=== PATIENT | female | born 1985 | race Caucasian/White ===

== ENCOUNTER → 2016-11-29 | Outpatient (CLI) | payer BC ==
[~2016-11-29] MED LIST: ALPR0.25 PO; DROS1TAB24 PO; ESCI10TA17 PO; ESCI1TAB10 PO; HYOS1TAB PO; LEVO125T4 PO; LEVO175T PO; METO25TA56 PO; PRENTAB26 PO; VANC5CAP PO
== END | disposition home or self-care (01) ==
LOC: C.PAPS 15:19
PROVIDERS: ATTEND Obstetrics & Gynecology
DX: Z34.01 Encounter for supervision of normal first pregnancy, first trimester (principal)

== ENCOUNTER → 2016-11-29 | Outpatient (CLI) | payer BC ==
[2016-12-01 13:09] LABS: CHLAMYDIA TRACH RNA*** NOT DETECTED (NOT DETECTED); GC (NEIS GONORRHOEAE)RNA** NOT DETECTED (NOT DETECTED)
== END | disposition home or self-care (01) ==
LOC: C.LABSPEC 15:04
PROVIDERS: ATTEND Obstetrics & Gynecology
DX: Z34.01 Encounter for supervision of normal first pregnancy, first trimester (principal)

== ENCOUNTER 2017-07-15 18:39 | Inpatient (IN) | payer BC ==
[~2017-07-15] VITALS: Ht 168.9 cm; Wt 86.5 kg
[~2017-07-15 18:39] MED LIST changes: -ESCI10TA17 PO; -LEVO175T PO; -PRENTAB26 PO
[2017-07-15] MEDS ORDERED: DINOPROSTONE 10 MG INSERT PV ONE (20:15)
[2017-07-15] MEDS ORDERED: LACTATED RINGER'S 1000ML 1,000 ML IV PRN (20:15)
[2017-07-15 20:38] VITALS: Ht 168.9 cm; Wt 86.5 kg
[2017-07-15 20:53] LABS: HEMATOCRIT 33.5 % (37-47); MEAN CELL VOLUME 88.9 fL (80-100); MEAN CORPUSCULAR HGB CONC 33.7 g/dl (32-36); MEAN PLATELET VOLUME 9.5 fL (7.4-10.4); PLATELET COUNT 302 K/uL (130-400); RED BLOOD COUNT 3.77 M/uL (4.2-5.4); WHITE BLOOD COUNT 9.54 K/uL (4.8-10.8)
[2017-07-15] MEDS ORDERED: BUTORPHANOL TARTRATE 1 MG/ML VIAL IV PRN (21:00)
[2017-07-15] MEDS ORDERED: PRENTAB26 PO (21:04)
[2017-07-15] MEDS ORDERED: LEVO175T PO (21:06)
[2017-07-15] MEDS ORDERED: ESCI10TA17 PO (21:06)
[2017-07-16] MEDS ORDERED: CALCIUM CARBONATE 500 MG CHEWABLE ONE (01:55)
[2017-07-16] MEDS ORDERED: NURSING VERBAL MED ORDER ONE ×3 (02:00→19:15)
[2017-07-16] MEDS ORDERED: CALCIUM CARBONATE 500 MG CHEWABLE PO PRN (02:15)
[2017-07-16] MEDS ORDERED: LEVOTHYROXINE 175 MCG TAB PO SCH (07:30)
[2017-07-16] MEDS ORDERED: DINOPROSTONE 10 MG INSERT PV ONE (08:30)
[2017-07-16] MEDS: LEVOTHYROXINE 175 MCG TAB PO SCH (09:07)
[2017-07-16] MEDS: LACTATED RINGER'S 1000ML 1,000 ML IV SCH ×3 (14:11→21:54)
[2017-07-16] MEDS ORDERED: BUPIVACAINE 0.25% 30 ML VIAL ONE ×2 (14:22→22:57)
[2017-07-16] MEDS ORDERED: EpHEDrine SULFATE INJ 50 MG/ML AMP ONE (14:22)
[2017-07-16] MEDS ORDERED: FENTANYL CITRATE INJ 50 MCG/1 ML 2 ML VIAL ONE (14:23)
[2017-07-16] MEDS ORDERED: FENTANYL 2MCG/ML ROPIV 1.25MG/ML 100ML BAG EPI ONE (14:23)
[2017-07-16] MEDS ORDERED: NALOXONE HCL INJ 1 MG in SODIUM CHLORIDE 0.9% 1000ML 1,000 ML IV PRN (15:38)
[2017-07-16] MEDS ORDERED: LACTATED RINGER'S 1000ML 500 ML IV PRN ×2 (15:38→16:54)
[2017-07-16] MEDS ORDERED: NALBUPHINE HCL INJ 10 MG/ML AMP IV PRN (15:45)
[2017-07-16] MEDS ORDERED: DiphenhydrAMINE HCL 50 MG/ML VIAL IV PRN (15:45)
[2017-07-16] MEDS ORDERED: EpHEDrine SULFATE INJ 50 MG/ML AMP IV PRN (15:45)
[2017-07-16] MEDS ORDERED: ONDANSETRON INJ 2 MG/ML 2 ML VIAL IV PRN (15:45)
[2017-07-16] MEDS ORDERED: NALOXONE HCL INJ 0.4 MG/1 ML VIAL/CARP IV PRN (15:45)
[2017-07-16] MEDS ORDERED: OXYTOCIN 30 UNITS/500ML NSS IV PRN (17:00)
[2017-07-16] MEDS: FENTANYL 2MCG/ML ROPIV 1.25MG/ML 100ML BAG EPI PRN ×3 (18:54→23:53)
[2017-07-16] MEDS ORDERED: ACETAMINOPHEN 325 MG TAB PO PRN (19:30)
[2017-07-16] MEDS: ESCITALOPRAM OXALATE 10 MG TAB PO SCH (21:54)
[2017-07-17] MEDS: FENTANYL 2MCG/ML ROPIV 1.25MG/ML 100ML BAG EPI PRN (02:38)
[2017-07-17] MEDS ORDERED: METHYLERGONOVINE MALEATE 0.2 MG/ML AMP ONE (03:32)
[2017-07-17] MEDS ORDERED: MISOPROSTOL 200 MCG TAB PR ONE (04:00)
[2017-07-17] MEDS ORDERED: SUPERCREAM 0.870 % 15GM JAR EXT PRN (04:00)
[2017-07-17] MEDS ORDERED: DIPHTHERIA/TETANUS/PERTUSSIS 0.5 ML SYR/VIAL IM. ONE (04:00)
[2017-07-17] MEDS ORDERED: ACETAMINOPHEN/CODEINE 300/30MG TAB PO PRN (04:00)
[2017-07-17] MEDS ORDERED: OXYCODONE/ACETAMINOPHEN 5-325 TAB PO PRN (04:00)
[2017-07-17] MEDS ORDERED: LANOLIN OINT EXT PRN ×2 (04:00)
[2017-07-17] MEDS ORDERED: METHYLERGONOVINE MALEATE 0.2 MG/ML AMP IM ONE (04:00)
[2017-07-17] MEDS ORDERED: HYDROCORTISONE ACETATE 25 MG SUPP PR PRN (04:00)
[2017-07-17] MEDS ORDERED: BENZOCAINE 20% AER SPR 82.5 GM CAN EXT PRN (04:00)
[2017-07-17] MEDS ORDERED: OXYTOCIN 30 UNITS/500ML NSS IV PRN (04:00)
[2017-07-17] MEDS: ACETAMINOPHEN/CODEINE 300/30MG TAB PO PRN ×2 (04:18→21:56)
--- NOTE | 2017-07-17 04:44 | DELIVERY SUMMARY ---
DATE OF OPERATION: 07/17/2017 The patient is a 32-year-old 1, para 1. She has a history of thyroid cancer. She is on thyroid replacement, has been checked several times during her and also adjusted several times. Blood type is O positive, rubella immune. Vaginal beta Strep screen negative. Glucose screen negative. The patient was brought in for induction due to persistent proteinuria and elevated alkaline phosphatase, she was brought in at 39 weeks 1 day. Her blood pressures were normal; however, she continued to spill and she had a fairly markedly elevated alkaline phosphatase along with a rash and itching. On admission, we used Cervidil tape, 12 hours later she started to contract some, cervix really had not changed much, we removed the 1 tape, replaced it with another Cervidil tape, and then several hours after this tape was in, her cervix started to open, at first it was about 2 cm and very posterior. After about 9 hours of the second tape, she requested and received epidural anesthesia. About the time she received the epidural anesthesia, the cervix had moved anteriorly and was 4-5 cm. The cervix remained anterior and 4-5 cm for several hours, gradually thinned out and then started to dilate. By this time, she was also augmented with IV Pitocin. With the IV Pitocin augmentation, she went to full dilatation and pushed out a live female infant via direct occiput anterior position over an intact perineum. Infant was suctioned through the mouth and the nose. Shoulders were delivered without difficulty. Cord was clamped, cut by the father. Cord blood was taken with IV Pitocin running. The placenta was removed intact. She had a little bit of uterine atony and ended up with an estimated blood loss of about 600 mL. The atony was managed by using 0.2 mg IM Methergine, IV Pitocin running and rectal Cytotec 1000 mcg along with vigorous fundal massage and removal of all clots. Following this, inspection revealed a complete tear of the right labia minora. This was infiltrated with local and repaired anatomically. A deep suture of 2-0 Vicryl was used to approximate the 2 ends of labia minora. Then, the skin surface was approximated with a mattress suture of interrupted Vicryls, about 5 mattress sutures, and then on the vaginal side, a running suture of 2-0 Vicryl was used to approximate the deep tissues. Following this, hemostasis was good, good anatomical approximation had been achieved. There was also a very small superficial laceration of the perineum at about 7:00 on the vaginal opening and this was repaired with a running 2-0 Vicryl. Following this vag exam, removed all additional clots and we also performed a bimanual massage. Hemostasis was good. Five 200 mcg Cytotec were inserted into the rectum. The patient tolerated the procedure well. Hemostasis was good. I attest to the content of the Intraoperative Record and any orders documented therein. Any exception s are noted below.
--- NOTE | 2017-07-17 05:03 | Anesthesia Procedure Note ---
Anesthesia Epidural Removal Nt Date & Time Jul 17, 2017 at 05:03 Vital Signs Pain Intensity: 6.0 Notes Mental Status: alert / awake / arousable, participated in evaluation Nausea / Vomiting: adequately controlled Pain: adequately controlled Airway Patency, RR, SpO2: stable & adequate BP & HR: stable & adequate Hydration State: stable & adequate Neuraxial Anesthesia: was administered Anesthetic Complications: no major complications apparent, pt satisfied with anesthetic care Epidural: removed without complications, with tip intact
[2017-07-17] MEDS: PRENATAL VITAMIN TAB PO SCH (08:00)
[2017-07-17 08:30] VITALS: BP 108/69; PULSE 109; TEMP 37.4
[2017-07-17] MEDS: DOCUSATE SODIUM 100 MG CAP PO SCH ×2 (09:01→19:18)
[2017-07-17] MEDS: FERROUS SULFATE 325 MG TAB PO SCH (09:01)
[2017-07-17] MEDS: IBUPROFEN 600 MG TAB PO PRN ×3 (09:02→19:18)
[2017-07-17] MEDS: ACETAMINOPHEN 325 MG TAB PO PRN ×2 (10:40→16:18)
[2017-07-17 12:00] VITALS: BP 99/62; PULSE 90; TEMP 36.3
[2017-07-17] MEDS: LEVOTHYROXINE 175 MCG TAB PO SCH (12:37)
[2017-07-17 15:30] VITALS: BP 104/67; PULSE 98; TEMP 36.6
[2017-07-17 19:15] VITALS: BP 98/66; PULSE 98; TEMP 36.8
[2017-07-17] MEDS: ESCITALOPRAM OXALATE 10 MG TAB PO SCH (19:19)
[2017-07-18 03:10] VITALS: BP 94/55; PULSE 80; TEMP 36.4
[2017-07-18 04:03] LABS: HEMATOCRIT 23.9 % (37-47)
[2017-07-18 04:21] LABS: ALT/SGPT 17 U/L (12-78); AST/SGOT 24 U/L (15-37); BLOOD UREA NITROGEN 8 mg/dl (7-18); BUN/CREATININE RATIO 12.2 (10-20); CALCIUM 7.9 mg/dl (8.5-10.1); CARBON DIOXIDE 23 mmol/L (21-32); CHLORIDE 112 mmol/L (98-107); CREATININE 0.67 mg/dl (0.60-1.20); GLUCOSE 76 mg/dl (70-99); POTASSIUM 3.6 mmol/L (3.5-5.1); SODIUM 141 mmol/L (136-145)
[2017-07-18 04:24] LABS: ALB/GLOB RATIO 0.6 (0.9-2); ALKALINE PHOSPHATASE 122 U/L (45-117)
[2017-07-18 07:30] VITALS: BP 101/67; PULSE 80; TEMP 36.5
[2017-07-18] MEDS: DOCUSATE SODIUM 100 MG CAP PO SCH ×2 (07:41→19:36)
[2017-07-18] MEDS: FERROUS SULFATE 325 MG TAB PO SCH (07:41)
[2017-07-18] MEDS: PRENATAL VITAMIN TAB PO SCH ×2 (07:41→07:42)
[2017-07-18] MEDS: IBUPROFEN 600 MG TAB PO PRN ×4 (07:41→22:16)
[2017-07-18] MEDS ORDERED: LEVOTHYROXINE 125 MCG TAB PO ONE (08:00)
[2017-07-18] MEDS ORDERED: NURSING VERBAL MED ORDER ONE (08:00)
--- NOTE | 2017-07-18 09:22 | Progress Note ---
Subjective Jul 18, 2017. Subjective conversation w/ patient Ambulation: ambulating normally Voiding: no voiding problems Passing Gas: Yes Diet Tolerance: Regular Diet Lochia: Moderate Feeding Type: Breast Feeding Review of Systems Constitutional: + fever Objective Vital Signs Date Time Temp Pulse Resp B/P (MAP) Pulse Ox O2 Delivery O2 Flow Rate FiO2 07/18/17 07:30 36.5 80 20 101/67 (78) Room Air 07/18/17 03:10 36.4 80 18 94/55 (68) Room Air 07/18/17 00:16 Room Air 07/17/17 19:15 36.8 98 18 98/66 (77) Room Air 07/17/17 15:30 36.6 98 18 104/67 (79) Room Air 07/17/17 12:00 36.3 90 20 99/62 (74) Physical Exam General Appearance: WELL-APPEARING Abdomen: non tender Fundus: Firm, Non-Tender Extremities: no pedal edema, no calf tenderness Laboratory Results Last 24 Hours Test 07/18/17 03:39 Hemoglobin 7.5 g/dL Hematocrit 23.9 % Sodium Level 141 mmol/L Potassium Level 3.6 mmol/L Chloride Level 112 mmol/L Carbon Dioxide Level 23 mmol/L Anion Gap 6.0 mmol/L Blood Urea Nitrogen 8 mg/dl Creatinine 0.67 mg/dl Est Creatinine Clear Calc Drug Dose 136.1 ml/min Estimated GFR () 135.8 Estimated GFR (Non- 117.1 BUN/Creatinine Ratio 12.2 Random Glucose 76 mg/dl Calcium Level 7.9 mg/dl Total Bilirubin 0.2 mg/dl Direct Bilirubin < 0.1 mg/dl Aspartate Amino Transf (AST/SGOT) 24 U/L Alanine Aminotransferase (ALT/SGPT) 17 U/L Alkaline Phosphatase 122 U/L Total Protein 4.9 gm/dl Albumin 1.9 gm/dl Globulin 3.0 gm/dl Albumin/Globulin Ratio 0.6 Assessment and Plan Problem List Medical Problems: (1) Abdominal pain Status: Acute (2) C. difficile colitis Status: Acute (3) C. difficile diarrhea Status: Acute Post- Day#: 1
[2017-07-18 11:23] VITALS: BP 117/72; PULSE 85; TEMP 36.4; O2SAT 97
[2017-07-18 16:50] VITALS: BP 103/64; PULSE 94; TEMP 36.9; O2SAT 98
[2017-07-18] MEDS ORDERED: BISACODYL 5 MG TABEC PO SCH (20:00)
[2017-07-18] MEDS: ESCITALOPRAM OXALATE 10 MG TAB PO SCH (22:16)
[2017-07-18 23:25] VITALS: BP 114/71; PULSE 76; TEMP 36.5
[2017-07-19] MEDS: IBUPROFEN 600 MG TAB PO PRN ×2 (06:41→18:17)
[2017-07-19 06:58] LABS: HEMATOCRIT 25.4 % (37-47)
[2017-07-19] MEDS ORDERED: BISACODYL 10 MG SUPP PR PRN (07:00)
[2017-07-19 07:22] VITALS: BP 113/72; PULSE 80; TEMP 36.7; O2SAT 98
[2017-07-19] MEDS ORDERED: LEVOTHYROXINE 125 MCG TAB PO SCH (07:30)
[2017-07-19] MEDS: PRENATAL VITAMIN TAB PO SCH (08:00)
--- NOTE | 2017-07-19 08:40 | Progress Note ---
Subjective Jul 19, 2017. Subjective conversation w/ patient Ambulation: ambulating normally Voiding: no voiding problems Passing Gas: Yes Diet Tolerance: Regular Diet Lochia: Small Feeding Type: Breast Feeding Review of Systems Constitutional: + fever Objective Vital Signs Date Time Temp Pulse Resp B/P (MAP) Pulse Ox O2 Delivery O2 Flow Rate FiO2 07/19/17 07:22 36.7 80 20 113/72 (86) 98 Room Air 07/18/17 23:25 Room Air 07/18/17 23:25 36.5 76 18 114/71 (85) Room Air 07/18/17 16:50 Room Air 07/18/17 16:50 36.9 94 20 103/64 (77) 98 Room Air 07/18/17 11:23 Room Air 07/18/17 11:23 36.4 85 18 117/72 (87) 97 Room Air Physical Exam General Appearance: WELL-APPEARING Fundus: Firm, Non-Tender Extremities: no pedal edema, no calf tenderness Laboratory Results Last 24 Hours Test 07/19/17 06:49 Hemoglobin 8.1 g/dL Hematocrit 25.4 % Assessment and Plan Problem List Medical Problems: (1) Abdominal pain Status: Acute (2) C. difficile colitis Status: Acute (3) C. difficile diarrhea Status: Acute Post- Day#: 2
--- NOTE | 2017-07-19 08:42 | Discharge Instructions ---
Discharge Instructions Date of Service Jul 19, 2017. Admission Reason for Admission: Induction Discharge Discharge Diagnosis / Problem: protienuria Discharge Goals Goal(s): Routine recovery after delivery Activity Recommendations Activity Limitations: as noted below ACTIVITY RECOMMENDATIONS: * Gradual return to full activity over the next 2-3 weeks. * No lifting - nothing heavier than baby over the next 2-3 weeks. * Do not engage in vigorous exercise, sexual activity or sports until cleared by your physician. * Do not drive or operate any motorized equipment until cleared by your physician. * You may shower/bathe daily. DIET: Resume Previous Diet If Breast-feeding: * Increase caloric intake by 500 calories, eat 3 well balanced meals, 2 high protein snacks a day and drink 6-8 8oz. glasses of fluid per day. BREAST CARE: If you are not breast feeding: * Wear a supportive bra 24 hours a day for one to two weeks. * Avoid stimulating your breasts and nipples as much as possible during the first few weeks after delivery. * When taking a shower, have the warm water hit your back, not breasts. * When your breasts feel full, apply ice packs. Usually three to four times a day helps ease the discomfort. * Take a mild pain medication (Tylenol / Motrin) when you are uncomfortable. If breast feeding: * Use breast milk to lubricate nipples. Lansinoh cream may be used for sore nipples. You do not need to remove cream prior to breast feeding. If using a different brand of cream, check the label for directions regarding removal of cream prior to nursing. * Wear a supportive bra. * If having problems with breasts or breast feeding, call a field service consultant or your health care provider. OVER THE COUNTER MEDICATION: * For discomfort or pain, you may use Acetaminophen (Tylenol), Ibuprofen (Advil ), or Naproxen (Aleve) following the package directions. * For constipation you may use Colace following the package directions. SPECIAL CARE INSTRUCTIONS: * Vaginal rest (no tampons, douching, intercourse) until after doctor 's visit. * control as discussed with doctor. * Verbalizes understanding of car seat law as reviewed with patient nursing. * Car Seat hand-out given and reviewed with patient by nursing. * Shaken baby information reviewed with patient by nursing. Call you doctor if: * Temperature greater than or equal to 100.4 degrees F or 38.0 degrees C. Take your temperature twice daily for a week. * Bleeding becomes heavier than the heaviest part of your period - saturating a sanitary pad within an hour. * Passing large clots. * Bleeding has a foul smelling odor. * Signs and symptoms of phlebitis: leg pain, warm, red or swollen area on leg. * "Baby Blues" lasting longer than two weeks. ++ If you have had a and incision has increased pain, redness, swelling, presence of any drainage, or if the incision starts to open up. If you have any questions or concerns, call your health care practitioner at [phone]. FOLLOW-UP VISIT: Please call the office at to schedule a 6 week examination. . Instructions / Follow-Up Instructions / Follow-Up ACTIVITY RECOMMENDATIONS: * Gradual return to full activity over the next 2-3 weeks. * No lifting - nothing heavier than baby over the next 2-3 weeks. * Do not engage in vigorous exercise, sexual activity or sports until cleared by your physician. * Do not drive or operate any motorized equipment until cleared by your physician. * You may shower/bathe daily. DIET: Resume Previous Diet If Breast-feeding: * Increase caloric intake by 500 calories, eat 3 well balanced meals, 2 high protein snacks a day and drink 6-8 8oz. glasses of fluid per day. BREAST CARE: If you are not breast feeding: * Wear a supportive bra 24 hours a day for one to two weeks. * Avoid stimulating your breasts and nipples as much as possible during the first few weeks after delivery. * When taking a shower, have the warm water hit your back, not breasts. * When your breasts feel full, apply ice packs. Usually three to four times a day helps ease the discomfort. * Take a mild pain medication (Tylenol / Motrin) when you are uncomfortable. If breast feeding: * Use breast milk to lubricate nipples. Lansinoh cream may be used for sore nipples. You do not need to remove cream prior to breast feeding. If using a different brand of cream, check the label for directions regarding removal of cream prior to nursing. * Wear a supportive bra. * If having problems with breasts or breast feeding, call a field service consultant or your health care provider. OVER THE COUNTER MEDICATION: * For discomfort or pain, you may use Acetaminophen (Tylenol), Ibuprofen (Advil ), or Naproxen (Aleve) following the package directions. * For constipation you may use Colace following the package directions. SPECIAL CARE INSTRUCTIONS: * Vaginal rest (no tampons, douching, intercourse) until after doctor 's visit. * control as discussed with doctor. * Verbalizes understanding of car seat law as reviewed with patient nursing. * Car Seat hand-out given and reviewed with patient by nursing. * Shaken baby information reviewed with patient by nursing. Call you doctor if: * Temperature greater than or equal to 100.4 degrees F or 38.0 degrees C. Take your temperature twice daily for a week. * Bleeding becomes heavier than the heaviest part of your period - saturating a sanitary pad within an hour. * Passing large clots. * Bleeding has a foul smelling odor. * Signs and symptoms of phlebitis: leg pain, warm, red or swollen area on leg. * "Baby Blues" lasting longer than two weeks. ++ If you have had a and incision has increased pain, redness, swelling, presence of any drainage, or if the incision starts to open up. If you have any questions or concerns, call your health care practitioner at [phone]. FOLLOW-UP VISIT: Please call the office at to schedule a 6 week examination. Current Hospital Diet Patient's current hospital diet: Regular Diet Discharge Diet Recommended Diet: Regular Diet Pending Studies Studies pending at discharge: no Medical Emergencies . Who to Call and When: Medical Emergencies: If at any time you feel your situation is an emergency, please call 911 immediately. . Non-Emergent Contact Non-Emergency issues call your: Sales Audit Clerk Call Non-Emergent contact if: temperature is above 100.5 . . "Provider Documentation" section prepared by Amish Hanley. . VTE Core Measure Inpt VTE Proph given/why not?: Treatment not indicated
[2017-07-19] MEDS: FERROUS SULFATE 325 MG TAB PO SCH (08:46)
[2017-07-19] MEDS: DOCUSATE SODIUM 100 MG CAP PO SCH (08:46)
[2017-07-19 16:15] VITALS: BP 115/76; PULSE 91; TEMP 36.4; O2SAT 99
[2017-07-19 18:30] VITALS: BP_DIAS 76; PULSE 91; TEMP 36.4
== END 2017-07-19 18:30 | disposition home or self-care (01) | DRG 774 ==
LOC: C.LD 19:33 → C.OBG 07-17 06:38
PROVIDERS: ADMIT Obstetrics & Gynecology; ATTEND Obstetrics & Gynecology
PROC: 3E0P7GC Introduction of Other Therapeutic Substance into Female Reproductive, Via Natural or Artificial Opening (ICD-10-PCS; 2017-07-15)
PROC: 10E0XZZ Delivery of Products of Conception, External Approach (ICD-10-PCS; principal; 2017-07-17)
PROC: 0HQ9XZZ Repair Perineum Skin, External Approach (ICD-10-PCS; principal; 2017-07-17)
DX: O12.14 Gestational proteinuria, complicating childbirth (principal); O98.82 Other maternal infectious and parasitic diseases complicating childbirth; O62.2 Other uterine inertia; A04.7 Enterocolitis due to Clostridium difficile; O70.0 First degree perineal laceration during delivery; Z37.0 Single live birth; Z3A.39 39 weeks gestation of pregnancy; Z85.850 Personal history of malignant neoplasm of thyroid

== ENCOUNTER 2018-06-14 23:16 | Inpatient (IN) | payer BC, OTHER ==
[~2018-06-14] VITALS: Ht 170.2 cm; Wt 69.3 kg
[~2018-06-14 23:16] MED LIST changes: -ALPR0.25 PO; -DROS1TAB24 PO; +ESCI10TA17 PO; -ESCI1TAB10 PO; -HYOS1TAB PO; -LEVO125T4 PO; +LEVO175T PO; -METO25TA56 PO; +PRENTAB26 PO; -VANC5CAP PO
[2018-06-14] MEDS ORDERED: LORAZEPAM 2 MG/ML 1 ML VIAL IV STA (23:29)
[2018-06-14] MEDS ORDERED: SODIUM CHLORIDE 0.9% 1000ML 1,000 ML IV ONE ×2 (23:30)
[2018-06-15] MEDS ORDERED: LEVO137T3 PO (00:18)
[2018-06-15 00:29] LABS: BASO % 0.1 %; BASO ABS # 0.01 K/uL (0-0.2); EOS % 0.3 %; EOS ABS # 0.02 K/uL (0-0.5); HEMATOCRIT 37.7 % (37-47); HEMOGLOBIN 12.7 g/dL (12.0-16.0); IG# 0.01 K/uL (0.00-0.02); LYMPH % 8.9 %; LYMPH ABS # 0.64 K/uL (1.2-3.4); MEAN CELL VOLUME 90.2 fL (80-100); MEAN CORPUSCULAR HEMOGLOBIN 30.4 pg (25-34); MEAN CORPUSCULAR HGB CONC 33.7 g/dl (32-36); MEAN PLATELET VOLUME 9.4 fL (7.4-10.4); MONO % 6.6 %; MONO ABS # 0.48 K/uL (0.11-0.59); NEUT ABS # 6.06 K/uL (1.4-6.5); PLATELET COUNT 280 K/uL (130-400); RED CELL DISTRIBUTION WIDTH CV 12.3 % (11.5-14.5); RED CELL DISTRIBUTION WIDTH SD 40.1 fL (36.4-46.3); WHITE BLOOD COUNT 7.22 K/uL (4.8-10.8)
[2018-06-15 00:47] LABS: ALBUMIN 3.3 gm/dl (3.4-5.0); CALCIUM 7.3 mg/dl (8.5-10.1); CREATININE 0.79 mg/dl (0.60-1.20); POTASSIUM 3.6 mmol/L (3.5-5.1); TOTAL PROTEIN 6.7 gm/dl (6.4-8.2)
[2018-06-15] MEDS ORDERED: CALCIUM GLUCONATE 10% 10 ML VIAL IV STA (01:49)
[2018-06-15] MEDS ORDERED: MAGNESIUM SULFATE 1GM / D5W 100 ML IV STA (02:08)
[2018-06-15 04:23] LABS: CALCIUM 7.4 mg/dl (8.5-10.1); CREATININE 0.7 mg/dl (0.60-1.20); POTASSIUM 3.4 mmol/L (3.5-5.1)
[2018-06-15] MEDS ORDERED: ACETAMINOPHEN 325 MG TAB PO PRN (04:45)
[2018-06-15] MEDS ORDERED: ALUMINUM/MAGNESIUM/SIMETH (MAALOX MAX) 30 ML UDC PO PRN (04:45)
[2018-06-15] MEDS ORDERED: MAGNESIUM HYDROXIDE SUSP 30 ML UDC PO PRN (04:45)
--- NOTE | 2018-06-15 05:05 | History and Physical ---
History & Physical Date & Time of Service: Jun 15, 2018 at 05:04 Chief Complaint: Nausea, Vomiting Primary Care Physician: Elsie Mcdowell C.RKlaudiaNKlaudiaPKlaudia History of Present Illness Source: patient, hospital records, other 33 y/o F Hx thyroid CA, neck dissection x 3 and resultant hypothyroidism. She developed nausea, vomiting and diarrhea one day prior, possibly with a low grade fever. She then developed pain in her joints and muscles, most prominently in her hips. This was followed by development of carpopedal spasm which prompted her to visit the ER. Initial labs revealed a calcium of 7.4. She was provided with IV calcium and IV fluids. Her carpopedal spasm resolved and her muscle aches improved. However, repeat labs were obtained and revealed persistent hypocalcemia. Her nausea and vomiting had resolved at the time of admission. The pt recently gave and is presently breast feeding. Past Medical/Surgical History 1) Thyroid CA 2) Hypothyroidism 3) Depression 4) C difficile Surgical: Thyroidectomy followed by radioiodine and 2 additional neck dissections Family History Mother with history of MS Social History Does not currently smoke or drink - she is presently breast feeding Smoking Status: Former Smoker Drug Use: none Marital Status: Occupational Status: employed Allergies Coded Allergies: Sertraline (Verified Allergy, Unknown, ., 06/15/18) Home Medications Scheduled Escitalopram (Lexapro), 10 MG PO DAILY Levothyroxine Sodium (Levothyroxine Sodium), 137 MCG PO DAILY Multivit/Min/Iron/Fol Ac/Pren ( Vitamin), 1 TAB PO DAILY Review of Systems Constitutional: + fever, No chills, No sweats Eyes: No worsening of vision ENT: No hearing loss, No unusual epistaxis, No nasal symptoms Respiratory: No cough, No wheezing Cardiovascular: No chest pain, No orthopnea, No PND Abdomen: + nausea, + vomiting, + diarrhea, No pain Musculoskeletal: + joint pain, + muscle pain, + problem reported (Carpal spasm) Genitourinary - Female: No dysuria, No urinary frequency Neurologic: No memory loss, No paralysis, No weakness Psychiatric: No depression symptoms Endocrine: No fatigue Hematologic / Lymphatic: No abnormal bleeding/bruising Integumentary: No rash Allergic / Immunologic: No environmental allergies Physical Exam Vital Signs Date Time Temp Pulse Resp B/P (MAP) Pulse Ox O2 Delivery O2 Flow Rate FiO2 8/3/18 04:00 92 18 119/72 95 Room Air 06/15/18 03:15 91 06/15/18 02:16 110 18 122/73 96 Room Air 06/15/18 01:45 109 16 111/76 96 Room Air 06/15/18 00:27 121 18 114/88 98 Room Air 06/14/18 23:45 94 Room Air 06/14/18 23:25 117 06/14/18 23:23 36.9 121 18 116/81 97 Room Air General Appearance: WD/WN, no apparent distress Head: normocephalic Eyes: normal inspection ENT: normal ENT inspection, pharynx normal Neck: supple, no JVD Respiratory/Chest: chest non-tender, lungs clear, normal breath sounds Cardiovascular: regular rate, rhythm, no edema, no gallop Abdomen/GI: normal bowel sounds, non tender, soft Back: normal inspection, no CVA tenderness, no muscle spasm (No spasm at the time of admission) Extremities/Musculoskelatal: normal inspection, no calf tenderness, normal capillary refill Neurologic/Psych: dry roller II-XII nml as tested, no motor/sensory deficits, alert, oriented x 3 Skin: normal color, warm/dry, no rash Diagnostics Laboratory Results Results Past 24 Hours Test 06/14/18 23:55 06/15/18 01:00 06/15/18 03:47 06/15/18 05:00 Range/Units White Blood Count 7.22 4.8-10.8 K/uL Red Blood Count 4.18 4.2-5.4 M/uL Hemoglobin 12.7 12.0-16.0 g/dL Hematocrit 37.7 37-47 % Mean Corpuscular Volume 90.2 80-100 fL Mean Corpuscular Hemoglobin 30.4 25-34 pg Mean Corpuscular Hemoglobin Concent 33.7 32-36 g/dl Platelet Count 280 130-400 K/uL Mean Platelet Volume 9.4 7.4-10.4 fL Neutrophils (%) (Auto) 84.0 % Lymphocytes (%) (Auto) 8.9 % Monocytes (%) (Auto) 6.6 % Eosinophils (%) (Auto) 0.3 % Basophils (%) (Auto) 0.1 % Neutrophils # (Auto) 6.06 1.4-6.5 K/uL Lymphocytes # (Auto) 0.64 1.2-3.4 K/uL Monocytes # (Auto) 0.48 0.11-0.59 K/uL Eosinophils # (Auto) 0.02 0-0.5 K/uL Basophils # (Auto) 0.01 0-0.2 K/uL RDW Standard Deviation 40.1 36.4-46.3 fL RDW Coefficient of Variation 12.3 11.5-14.5 % Immature Granulocyte % (Auto) 0.1 % Immature Granulocyte # (Auto) 0.01 0.00-0.02 K/uL Sodium Level 141 140 136-145 mmol/L Potassium Level 3.6 3.4 3.5-5.1 mmol/L Chloride Level 114 113 98-107 mmol/L Carbon Dioxide Level 18 21 21-32 mmol/L Anion Gap 9.0 6.0 3-11 mmol/L Blood Urea Nitrogen 16 13 7-18 mg/dl Creatinine 0.79 0.70 0.60-1.20 mg/dl Est Creatinine Clear Calc Drug Dose 99.4 112.2 ml/min Estimated GFR () 114.8 132.9 Estimated GFR (Non- 99.1 114.6 BUN/Creatinine Ratio 19.7 18.1 10-20 Random Glucose 112 89 70-99 mg/dl Calcium Level 7.3 7.4 8.5-10.1 mg/dl Magnesium Level 1.6 1.9 1.8-2.4 mg/dl Total Bilirubin 0.7 0.2-1 mg/dl Aspartate Amino Transf (AST/SGOT) 12 15-37 U/L Alanine Aminotransferase (ALT/SGPT) 16 12-78 U/L Alkaline Phosphatase 107 45-117 U/L Total Creatine Kinase 82 26-192 U/L Total Protein 6.7 6.4-8.2 gm/dl Albumin 3.3 3.4-5.0 gm/dl Globulin 3.4 2.5-4.0 gm/dl Albumin/Globulin Ratio 1.0 0.9-2 Lipase 79 73-393 U/L Thyroid Stimulating Hormone (TSH) 0.127 0.300-4.500 uIu/ml Free Thyroxine 1.40 0.80-1.60 ng/dl Free Triiodothyronine 3.06 2.30-4.20 pg/ml Urine Color YELLOW Urine Appearance CLEAR CLEAR Urine pH 5.0 4.5-7.5 Urine Specific [place] 1.024 1.000-1.030 Urine Protein NEG NEG Urine Glucose (UA) NEG NEG Urine Ketones 3+ NEG Urine Occult Blood TRACE NEG Urine Nitrite NEG NEG Urine Bilirubin NEG NEG Urine Urobilinogen NEG NEG Urine Leukocyte Esterase TRACE NEG Urine WBC (Auto) 1-5 0-5 /hpf Urine RBC (Auto) 0-4 0-4 /hpf Urine Hyaline Casts (Auto) 0 0-5 /lpf Urine Epithelial Cells (Auto) >30 0-5 /lpf Urine Bacteria (Auto) NEG NEG Urine Test NEG NEG EKG NSR with normal QT interval Impression Assessment and Plan 33 y/o F Hx thyroid CA, neck dissection x 3 and resultant hypothyroidism. She developed nausea, vomiting and diarrhea one day prior, possibly with a low grade fever. She then developed pain in her joints and muscles, most prominently in her hips. This was followed by development of carpopedal spasm which prompted her to visit the ER. Initial labs revealed a calcium of 7.4. She was provided with IV calcium and IV fluids. Her carpopedal spasm resolved and her muscle aches improved. However, repeat labs were obtained and revealed persistent hypocalcemia. Her nausea and vomiting had resolved at the time of admission. The pt recently gave and is presently breast feeding. 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 We will need to check a phos, vitamin D and PTH - all are pending on admission. We will provide additional calcium. Her Mg was slightly low on admission, although a repeat showed a normal level. We will start her on calcium/vitamin D BID in addition to PO Mg. She will likely need a much higher dose of vitamin D after lab results become available. 2) Hypothyroidism. TSH is slightly low - T4 is WNL - she can follow with her MD upon DC for dose adjustments. 3) Nausea/vomiting/diarrhea - likely self-limiting and has improved - antiemetics and IVF provided. She apparently has a history of C diff so that a toxin study was ordered by the ER. Full code - SCDs Total time for this admit including review of labs, meds, imaging, records - discussion with pt and ER attending 37 min Resuscitation Status VTE Prophylaxis Will order VTE Prophylaxis: Yes Reason no Mechanical VTE Order: Treatment not indicated
[2018-06-15] MEDS ORDERED: CALCIUM GLUCONATE 10% 10 ML VIAL IV ONE (05:06)
[2018-06-15] MEDS ORDERED: IV FLUIDS COMPLETED PRN (05:15)
--- NOTE | 2018-06-15 06:00 | EMERGENCY ROOM VISIT NOTE ---
History First contact with patient: 23:19 Chief Complaint: VOMITING Stated Complaint: NAUSEA, VOMITING Nursing Triage Summary: Patient with n/v/d since 1200. Tonight with bilateral hand numbness and hand cramping. patient feels like from the waste down she feels like her legs cramping. Feet are pointed unable to straighten feet, when nurse attempts to lift feet very painful. 700 nss bolus and 4 mg zofran given enroute. History of Present Illness The patient is a 33 year old female who presents to the Emergency Room with complaints of nausea, vomiting, and diarrhea that began about 11 hours prior to arrival. The patient states that she started with diarrhea around 12 noon and had a few episodes of this throughout the next several hours. She does have a past history of C. difficile but has not been on recent antibiotics. This does not feel like her previous C. difficile infection. The patient states that around 6 PM, roughly 5 hours ago, she began having multiple episodes of vomiting. The patient had difficulty getting out of the bathroom following the vomiting. EMS was contacted, and they witnessed carpopedal spasms, where the patient was essentially unable to ambulatory. The patient was contracted inward with her arms. They were able to establish an IV and she has had about 700 to 800 mL's normal saline prior to arrival. This has significantly improved the spasm in her upper extremities, but on her lower extremities. She did get Zofran prehospital and has not vomited since. The patient considers himself usually healthy. She recently gave to a healthy child and is breast-feeding. The patient does have a past history of thyroid cancer with resection. She rates her current discomfort in 06/22. Review of Systems More than 10 systems were reviewed and otherwise negative with the exception of history of present illness. Past Medical/Surgical History Medical Problems: (1) Asymptomatic proteinuria (2) Cramps, extremity (3) Elevated liver enzymes (4) Hypocalcemia (5) Thyroid cancer Surgical Problems: (1) H/O thyroidectomy Family History No pertinent family history Social History Smoking Status: Former Smoker Alcohol Use: none Drug Use: none Marital Status: Housing Status: lives with family Occupation Status: employed Current/Historical Medications Scheduled Escitalopram (Lexapro), 10 MG PO DAILY Levothyroxine Sodium (Levothyroxine Sodium), 137 MCG PO DAILY Multivit/Min/Iron/Fol Ac/Pren ( Vitamin), 1 TAB PO DAILY Physical Exam Vital Signs Date Time Temp Pulse Resp B/P (MAP) Pulse Ox O2 Delivery O2 Flow Rate FiO2 06/15/18 05:44 84 18 118/71 98 Room Air 06/15/18 04:00 92 18 119/72 95 Room Air 06/15/18 03:15 91 06/15/18 02:16 110 18 122/73 96 Room Air 06/15/18 01:45 109 16 111/76 96 Room Air 06/15/18 00:27 121 18 114/88 98 Room Air 06/14/18 23:45 94 Room Air 06/14/18 23:25 117 06/14/18 23:23 36.9 121 18 116/81 97 Room Air Physical Exam VITALS: Vitals are noted on the nurse's note and reviewed by myself. Vital signs noted GENERAL: Ill and very uncomfortable appearing female. She is mildly pale and diaphoretic. She has obvious spasm of her lower legs. HEAD: Normocephalic atraumatic. MOUTH: Mucous membranes dry. Tonsils are not enlarged. Pharynx without erythema, blood, or exudate. Uvula midline. Airway patent. NECK: Supple without nuchal rigidity. No lymphadenopathy. No thyromegaly. Cervical spine is nontender. HEART: Regular rate and rhythm without murmurs gallops or rubs. LUNGS: Clear to auscultation bilaterally without wheezes, rales or rhonchi. No retractions or accessory muscle use. ABDOMEN: Positive normal bowel sounds x 4. Soft, nontender, without masses or organomegaly. No guarding or rebound tenderness. MUSCULOSKELETAL: No muscle atrophy, erythema, or edema noted. Significant spasm noted of the lower extremities. Patient is unable to actively flex or extend at her ankles or knees. I am unable to passively manipulate her toes, foot, ankle, or knee without causing significant discomfort to the patient secondary to the spasms. Sensation appears intact. Pedal pulses are good. Cap refill less than 2 seconds. NEURO: Patient was alert and oriented to person place and time. CN II through XII grossly intact. Medical Decision & Procedures Laboratory Results 06/14/18 23:55 Red Blood Count 4.18, Mean Corpuscular Volume 90.2, Mean Corpuscular Hemoglobin 30.4, Mean Corpuscular Hemoglobin Concent 33.7, Mean Platelet Volume 9.4, Neutrophils (%) (Auto) 84.0, Lymphocytes (%) (Auto) 8.9, Monocytes (%) (Auto) 6.6, Eosinophils (%) (Auto) 0.3, Basophils (%) (Auto) 0.1, Neutrophils # (Auto) 6.06, Lymphocytes # (Auto) 0.64, Monocytes # (Auto) 0.48, Eosinophils # (Auto) 0.02, Basophils # (Auto) 0.01 06/15/18 03:47 Test 06/14/18 23:55 06/15/18 01:00 06/15/18 03:47 06/15/18 05:00 White Blood Count 7.22 K/uL (4.8-10.8) Red Blood Count 4.18 M/uL (4.2-5.4) Hemoglobin 12.7 g/dL (12.0-16.0) Hematocrit 37.7 % (37-47) Mean Corpuscular Volume 90.2 fL (80-100) Mean Corpuscular Hemoglobin 30.4 pg (25-34) Mean Corpuscular Hemoglobin Concent 33.7 g/dl (32-36) Platelet Count 280 K/uL (130-400) Mean Platelet Volume 9.4 fL (7.4-10.4) Neutrophils (%) (Auto) 84.0 % Lymphocytes (%) (Auto) 8.9 % Monocytes (%) (Auto) 6.6 % Eosinophils (%) (Auto) 0.3 % Basophils (%) (Auto) 0.1 % Neutrophils # (Auto) 6.06 K/uL (1.4-6.5) Lymphocytes # (Auto) 0.64 K/uL (1.2-3.4) Monocytes # (Auto) 0.48 K/uL (0.11-0.59) Eosinophils # (Auto) 0.02 K/uL (0-0.5) Basophils # (Auto) 0.01 K/uL (0-0.2) RDW Standard Deviation 40.1 fL (36.4-46.3) RDW Coefficient of Variation 12.3 % (11.5-14.5) Immature Granulocyte % (Auto) 0.1 % Immature Granulocyte # (Auto) 0.01 K/uL (0.00-0.02) Total Bilirubin 0.7 mg/dl (0.2-1) Aspartate Amino Transf (AST/SGOT) 12 U/L (15-37) Alanine Aminotransferase (ALT/SGPT) 16 U/L (12-78) Alkaline Phosphatase 107 U/L (45-117) Total Creatine Kinase 82 U/L (26-192) Total Protein 6.7 gm/dl (6.4-8.2) Albumin 3.3 gm/dl (3.4-5.0) Globulin 3.4 gm/dl (2.5-4.0) Albumin/Globulin Ratio 1.0 (0.9-2) Lipase 79 U/L (73-393) Thyroid Stimulating Hormone (TSH) 0.127 uIu/ml (0.300-4.500) Free Thyroxine 1.40 ng/dl (0.80-1.60) Free Triiodothyronine 3.06 pg/ml (2.30-4.20) Urine Color YELLOW Urine Appearance CLEAR (CLEAR) Urine pH 5.0 (4.5-7.5) Urine Specific [place]yer 1.024 (1.000-1.030) Urine Protein NEG (NEG) Urine Glucose (UA) NEG (NEG) Urine Ketones 3+ (NEG) Urine Occult Blood TRACE (NEG) Urine Nitrite NEG (NEG) Urine Bilirubin NEG (NEG) Urine Urobilinogen NEG (NEG) Urine Leukocyte Esterase TRACE (NEG) Urine WBC (Auto) 1-5 /hpf (0-5) Urine RBC (Auto) 0-4 /hpf (0-4) Urine Hyaline Casts (Auto) 0 /lpf (0-5) Urine Epithelial Cells (Auto) >30 /lpf (0-5) Urine Bacteria (Auto) NEG (NEG) Urine Test NEG (NEG) Anion Gap 6.0 mmol/L (3-11) Est Creatinine Clear Calc Drug Dose 112.2 ml/min Estimated GFR () 132.9 Estimated GFR (Non- 114.6 BUN/Creatinine Ratio 18.1 (10-20) Calcium Level 7.4 mg/dl (8.5-10.1) Magnesium Level 1.9 mg/dl (1.8-2.4) Medications Administered Medications (Trade) Dose Ordered Sig/Za Route Start Time Stop Time Status Last Admin Dose Admin Lorazepam (Ativan Inj) 2 mg NOW STAT IV 06/14/18 23:29 06/14/18 23:32 DC 06/14/18 23:37 2 MG Sodium Chloride 1,000 ml @ 999 mls/hr Q1H1M ONCE IV 06/14/18 23:30 06/15/18 00:30 DC 06/14/18 23:42 999 MLS/HR Sodium Chloride 1,000 ml @ 999 mls/hr Q1H1M ONCE IV 06/14/18 23:30 06/15/18 00:30 DC 06/14/18 23:42 999 MLS/HR Calcium Gluconate (Calcium Gluconate 10%) 1,000 mg NOW STAT IV 06/15/18 01:49 06/15/18 01:50 DC 06/15/18 02:11 1,000 MG Calcium Gluconate (Calcium Gluconate 10%) 1,000 mg STK-MED ONCE IV 06/15/18 05:06 06/15/18 05:07 DC 06/15/18 05:22 1,000 MG ED Course Physical exam and history were performed. Nursing notes, EMR, and Medication List were personally reviewed. Patient appears to have nausea, vomiting, diarrhea, and carpopedal spasms. She is very tight in her lower legs which seem quite uncomfortable. IV access was established and labs were obtained. The patient was given 2 mg IV Ativan because of her symptoms. Patient has had about 750 mL normal saline prehospital , we did provide her an additional 2 L. EKG was performed and was sinus tachycardia without acute ST elevation or evidence of obvious electrolyte imbalance. Patient was placed on the court recording monitor. There was an old history of C. difficile and stool sample studies were ordered. The patient's blood work is as above and was reviewed. She does not have a significantly elevated white blood cell count or gross anemia. Her magnesium is slightly low. Her calcium is markedly decreased, and this was repleted through her IV after discussion with pharmacy. The patient does have some additional electrolyte imbalance as above. Her TSH is low, but she is on Synthroid. T3 and T4 did not seem atypical. I discussed the case with the on-call hospitalist, Dr. Ledesma, who evaluated the patient here in the department for further care. The concern is for hypocalcemia in the setting of thyroid resection. The patient was monitored over several hours she did have significant improvement of her leg spasms, and was able to return to near normal function whereas before she was unable to move her legs at all. Please see Dr Ledesma's dictation for further patient course, plan, and disposition. The chart was completed utilizing [email or web address] Speech Voice Recognition Software. Grammatical errors, random word insertions, pronoun errors, and incomplete sentences are an occasional consequence of this system due to software limitations, ambient noise, and hardware issues. Any formal questions or concerns about the content, text, or information contained within the body of this dictation should be directly addressed to the provider for clarification. . Medical Decision Differential diagnosis: Etiologies such as metabolic, infection, hypo/hyperglycemia, electrolyte abnormalities, cardiac sources, intracerebral event, toxicologic, neurologic, as well as others were entertained. Impression Primary Impression: Hypocalcemia Additional Impressions: Carpopedal spasm Nausea, vomiting, and diarrhea Departure Information Referrals Elsie Mcdowell C.R.N.P. (PCP) Patient Instructions [facility] Problem Qualifiers
[2018-06-15 06:03] VITALS: BP 108/72; PULSE 96; TEMP 37; O2SAT 97; Ht 170.2 cm; Wt 69.3 kg
[2018-06-15] MEDS ORDERED: CALCIUM GLUCONATE 10% 1,000 MG in SODIUM CHLORIDE 0.9% 50ML 50 ML IV SCH (06:45)
[2018-06-15] MEDS ORDERED: CALCIUM 600MG + VIT D 400 IU TAB PO ONE (06:45)
[2018-06-15] MEDS ORDERED: MAGNESIUM OXIDE 400 MG TAB PO ONE (06:45)
[2018-06-15] MEDS: LEVOTHYROXINE 137 MCG TAB PO SCH (06:45)
[2018-06-15] MEDS ORDERED: D5NSS + 20MEQ KCL 1,000 ML IV SCH (06:45)
[2018-06-15] MEDS ORDERED: POTASSIUM CHLORIDE PWD 20 MEQ PACK PO ONE (06:45)
[2018-06-15] MEDS ORDERED: POTASSIUM PHOS 3 MMOL/1 ML INFUSION IV STA (07:34)
[2018-06-15 07:49] VITALS: BP 114/73; PULSE 98; TEMP 36.8; O2SAT 96
[2018-06-15] MEDS: PRENATAL VITAMIN TAB PO SCH (07:50)
[2018-06-15] MEDS: ESCITALOPRAM OXALATE 10 MG TAB PO SCH (07:50)
[2018-06-15] MEDS ORDERED: POTASSIUM PHOSPHATE INJ 40 MMOL in SODIUM CHLORIDE 0.9% 1000ML 1,000 ML IV ONE (08:00)
[2018-06-15] MEDS ORDERED: CALCIUM CARBONATE 1250MG TAB PO SCH (09:00)
[2018-06-15] MEDS: CALCIUM 600MG + VIT D 400 IU TAB PO SCH ×2 (09:00→20:31)
[2018-06-15 09:57] LABS: CALCIUM 8.2 mg/dl (8.5-10.1); CREATININE 0.6 mg/dl (0.60-1.20); POTASSIUM 3.9 mmol/L (3.5-5.1)
[2018-06-15 11:51] VITALS: BP 109/72; PULSE 94; TEMP 36.8; O2SAT 99
[2018-06-15 15:23] VITALS: BP 110/66; PULSE 93; TEMP 36.8; O2SAT 96
[2018-06-15 17:38] LABS: CALCIUM 7.7 mg/dl (8.5-10.1); CREATININE 0.68 mg/dl (0.60-1.20); PHOSPHORUS 4.2 mg/dl (2.5-4.9); POTASSIUM 3.8 mmol/L (3.5-5.1)
[2018-06-15 19:42] VITALS: BP 106/70; PULSE 87; TEMP 37.5; O2SAT 98
--- NOTE | 2018-06-15 23:45 | Progress Note ---
Progress Note Date of Service Jun 15, 2018. Progress Note 33 yo female was seen multiple times throughout the day. Patient reports that she has had a bout of diarrhea, nausea vomiting for past 2 days prior to arrival. In the AM patient reported feeling better in the fact that she had no contractions and her extremities were normal. She however stated having diarrhea. Her physical exam was normal: no longer in distress, able to move all extremities. Abd: soft, non tender, Normal BS. Ext: no edema. When seen at 6pm, patient reports not having any bowel movements since 3 pm. She reports feeling close to her baseline. Unsure what was the cause of her hypocalcemia. Her PTH being slightly up is a good response for hypocalcemia. Her TSH is appropriately due to her history of thyroid cancer. C. diff negative, and stool tests were negative. Perhaps she had a viral gastroenteritis that worsened her labs. She is adequately replaced and will recheck her labs in AM. If they are ok, will discharge. And have her f/u with PCP and endocrinology.
[2018-06-16 00:34] VITALS: BP 96/60; PULSE 84; TEMP 36.6; O2SAT 97
[2018-06-16 03:42] VITALS: BP 107/69; PULSE 84; TEMP 36.3; O2SAT 96
[2018-06-16] MEDS: LEVOTHYROXINE 137 MCG TAB PO SCH (05:56)
[2018-06-16 07:21] VITALS: BP 103/64; PULSE 80; TEMP 36.7; O2SAT 97
[2018-06-16 07:34] LABS: HEMATOCRIT 37.3 % (37-47); HEMOGLOBIN 12.3 g/dL (12.0-16.0); MEAN CELL VOLUME 92.1 fL (80-100); MEAN CORPUSCULAR HEMOGLOBIN 30.4 pg (25-34); PLATELET COUNT 248 K/uL (130-400); RED CELL DISTRIBUTION WIDTH CV 12.5 % (11.5-14.5); RED CELL DISTRIBUTION WIDTH SD 42.4 fL (36.4-46.3); WHITE BLOOD COUNT 3.35 K/uL (4.8-10.8)
[2018-06-16 08:16] LABS: CALCIUM 8.6 mg/dl (8.5-10.1); CREATININE 0.67 mg/dl (0.60-1.20); POTASSIUM 3.7 mmol/L (3.5-5.1)
[2018-06-16 08:25] VITALS: BP 103/64; PULSE 80; TEMP 36.7; O2SAT 97
--- NOTE | 2018-06-16 08:28 | Discharge Instructions ---
Discharge Instructions Date of Service Jun 16, 2018. Admission Reason for Admission: Cramps, Extremity; Hypocalcemia Discharge Discharge Diagnosis / Problem: Hypocalcemia, Hypophosphatemia Discharge Goals Goal(s): Decrease discomfort, Improve function Activity Recommendations Activity Limitations: resume your previous activity . Instructions / Follow-Up Instructions / Follow-Up Followup with PCP in 1 week Followup with Endocrinology in 1-2 weeks Will reorder blood work in 5 days. Current Hospital Diet Patient's current hospital diet: Regular Diet Discharge Diet Recommended Diet: Regular Diet Pending Studies Studies pending at discharge: no Medical Emergencies . Who to Call and When: Medical Emergencies: If at any time you feel your situation is an emergency, please call 911 immediately. . Non-Emergent Contact Non-Emergency issues call your: Primary Care Provider Call Non-Emergent contact if: you have any medication questions . . "Provider Documentation" section prepared by Martín Richards. .
[2018-06-16] MEDS: ESCITALOPRAM OXALATE 10 MG TAB PO SCH (08:45)
[2018-06-16] MEDS: CALCIUM 600MG + VIT D 400 IU TAB PO SCH (08:45)
[2018-06-16] MEDS: PRENATAL VITAMIN TAB PO SCH (08:45)
== END 2018-06-16 08:45 | disposition home or self-care (01) | DRG 641 ==
LOC: EDBD 23:16 → C.EDC 23:17 → C.2T 06-15 04:42 → ENRESERV 06-15 04:58 → OBSVTOIN 06-15 11:48 → C.2T 06-16 00:25
PROVIDERS: ADMIT Internal Medicine; ATTEND Internal Medicine
DX: E83.51 Hypocalcemia (principal); E89.2 Postprocedural hypoparathyroidism; R11.2 Nausea with vomiting, unspecified; R19.7 Diarrhea, unspecified; E89.0 Postprocedural hypothyroidism; Z79.899 Other long term (current) drug therapy; Z85.850 Personal history of malignant neoplasm of thyroid; Z87.891 Personal history of nicotine dependence

== ENCOUNTER 2021-06-04 10:48 | Inpatient (IN) ==
--- NOTE | 2021-06-04 11:30 | Obstetrical Progress Note ---
Date of Service June 04, 2021 Assessment & Plan (1) Uterine contractions at greater than 20 weeks of gestation: Plan: Patient uncomfortable and toco active but no definite cervical change yet - will ambulate and reassess in an hour to confirm labor. Subjective 36yo at 39w3d presents from home with c/o loss of mucus plug over last 2 days plus contractions Q7min and painful this morning. She called the office and was told to come to L&D. Contractions have increased in intensity and frequency since then and are now Q2-3min. She was 3cm dilated in the office 3 days ago. No LOF, has vaginal spotting, and good FM. Physical Exam Genitourinary: Manual OB Exam: + cervical dilation 3 cm, + cervical effacement 90%, + station -2 and + amniotic fluid (no leakage evident) OB Exam Monitor Tracing: + external uterine monitor used (3min) and + category I Results & Data ([facility]) Vital Signs (Past 12 Hours) Vital Signs Pulse BP 06/04/21 11:10 75 121/74 PG Care Time/CCT Total # of Minutes Spent Total Time Spent with Patient: Total time spent is greater than 50% in coordination of care (as documented) at patient's floor/unit and/or counseling patient: Coding Level of Care Code None Diagnoses Uterine contractions at greater than 20 weeks of gestation O47.9
[2021-06-04] MEDS ORDERED: OXYTOCIN 30 UNITS/500 ML BAG IV PRN (12:41)
--- NOTE | 2021-06-04 12:44 | Labor Progress Brief Note ---
Date of Service June 04, 2021 Subjective Contractions more painful. Wants epidural. Assessment & Plan (1) Normal labor and delivery: Plan: Admit, epidural, exp mgmt Physical Exam Physical Exam: FHT Cat 1 [place] Q2-3 Cervix changed to 4/90/-2 Results & Data ([facility]) Vital Signs (Past 12 Hours) Vital Signs Temp Pulse Resp BP 06/04/21 11:26 98.1 F 75 20 121/74 06/04/21 11:10 75 121/74 Coding Level of Care Code None Diagnoses Normal labor and delivery O80
[2021-06-04] MEDS: LACTATED RINGER'S 1,000 ML IV PRN ×2 (12:45→13:48)
[2021-06-04] MEDS ORDERED: SODIUM CHLORIDE 0.9% INJ 10 ML VIAL ONE (12:59)
[2021-06-04] MEDS ORDERED: ePHEDrine sulfate 50 MG/ML AMP ONE (12:59)
[2021-06-04] MEDS ORDERED: fentaNYL 2MCG/ML ROPIVACAINE 1.25MG/ML 100 ML BAG EPI ONE (13:00)
[2021-06-04] MEDS ORDERED: fentaNYL citrate 100 MCG/2 ML VIAL ONE (13:00)
[2021-06-04] MEDS ORDERED: BUPIVACAINE 0.25% 30 ML VIAL ONE (13:00)
[2021-06-04 13:23] LABS: Hematocrit (blood only) 34.7 % (37-47); Hemoglobin 11.7 g/dL (12.0-16.0); Mean Corpuscular Hemoglobin 32.2 pg (25-34); Mean Corpuscular Hgb Conc 33.7 g/dL (32-36); Mean Corpuscular Volume 95.6 fL (80-100); Mean Platelet Volume 9.6 fL (7.4-10.4); Platelet Count 208 K/uL (130-400); RDW Coefficient of Variation 13.6 % (11.5-14.5); RDW Standard Deviation 47.7 fL (36.4-46.3); Red Blood Count 3.63 M/uL (4.2-5.4); White Blood Count 7.35 K/uL (4.8-10.8)
[2021-06-04] MEDS ORDERED: NALBUPHINE HCL INJ 10 MG/ML AMP IV PRN (14:02)
[2021-06-04] MEDS ORDERED: fentaNYL 2MCG/ML ROPIVACAINE 1.25MG/ML 100 ML BAG EPI PRN (14:02)
[2021-06-04] MEDS ORDERED: diphenhydrAMINE 50 MG/ML VIAL IV PRN (14:02)
[2021-06-04] MEDS ORDERED: NALOXONE HCL 1 MG in SODIUM CHLORIDE 0.9% 1000ML 1,000 ML IV PRN (14:02)
[2021-06-04] MEDS ORDERED: ePHEDrine sulfate 50 MG/ML AMP IV PRN (14:02)
[2021-06-04] MEDS ORDERED: ONDANSETRON INJ 2 MG/ML 2 ML VIAL IV PRN (14:02)
[2021-06-04] MEDS ORDERED: NALOXONE HCL 0.4 MG/1 ML VIAL/CARP IV PRN (14:02)
[2021-06-04] MEDS ORDERED: PROMETHAZINE HCL 6.25 MG in SODIUM CHLORIDE 0.9% 50 ML IV PRN (14:02)
--- NOTE | 2021-06-04 14:04 | Anesthesiology Consultation ---
Date of Service June 04, 2021 Assessment & Plan (1) Encounter for pre-operative examination: Chart Review Chart Review: Patient NOT seen in Pre Admission Testing and Acceptable Risk for Labor Epidural Consults Requested none ASA ASA2 Proposed Anesthesia Anesthesia Type: Labor Epidural Risk / Benefits Reviewed With: PT / POA / Parent / Guardian, Accepts Plan and Informed Consent Obtained History Height/Weight Height: 5 ft 7 in Weight: 78.471 kg Allergies Allergy/AdvReac Type Severity Reaction Status Date / Time sertraline Allergy Unknown . Verified 06/01/21 10:07 Medications Home Medications Medication Instructions Recorded Confirmed Last Taken escitalopram oxalate 10 mg tablet 10 mg PO tab 08/20/19 06/01/21 06/03/21 22:30 prenat.vits,shandra,[id number] 1 tab PO DAILY 10/27/20 06/04/21 06/03/21 22:30 docusate sodium 100 mg capsule 100 mg PO DAILY 06/04/21 06/04/21 06/03/21 22:30 (Colace) famotidine 20 mg tablet (Pepcid AC) 20 mg PO DAILY 06/04/21 06/04/21 06/03/21 18:00 ferrous sulfate 325 mg (65 mg 325 mg PO DAILY 06/04/21 06/04/21 06/03/21 22:30 iron) tablet (Iron (ferrous sulfate)) levothyroxine 137 mcg tablet 137 mcg PO DAILY 06/04/21 06/04/21 06/04/21 08:00 (Synthroid) Active Medications Generic Name Dose Route Start Last Admin Trade Name Freq PRN Reason Stop Dose Admin Lactated Ringer's 1,000 mls @ 125 mls/hr 06/04/21 12:41 06/04/21 13:48 Lr IV 06/06/21 12:40 125 mls/hr .Q8H PRN Administration L&D Protocol Protocol NPO Date Last Intake of Fluids: 06/04/21 Time Last Intake of Fluids: 10:00 Date Last Intake of Solids: 06/03/21 Time Last Intake of Solids: 21:00 Past Medical History Medical History (Updated 06/04/21 @ 14:03 by Rafal Moscoso MD) Asymptomatic proteinuria Hx of malignant neoplasm of thyroid No chronic diseases present Exercise / Class Metabolic Activity II 4-5 Yardwork/Stairs/Walk up hill Past Family History Family History Other Diabetes Heart disease Hypertension Osteoporosis Past Surgical History Surgical History H/O total thyroidectomy No significant past surgical history Past Anesthesia History No Hx of Anesthesia Complications and No Family Hx of Anesthesia Complications History of PONV No Hx of PONV and No Hx of Motion Sickness Social History Smoking Status: Never smoker Do You Dip or Chew Tobacco: No Hx Alcohol Use: No Hx Substance Use: No Physical Exam Vital Signs Last Vital Signs Temp 36.7 C 06/04/21 11:26 Pulse 76 06/04/21 14:02 Resp 20 06/04/21 11:26 BP 110/57 L 06/04/21 14:02 Pulse Ox 100 06/04/21 13:57 ENMT Mouth: no dentition abnormality Thyromental Distance: > or= 3.5 Finger Breadths Mallampati Class: II Neck normal visual inspection Respiratory normal respiratory effort Auscultation: lungs clear to auscultation bilaterally Cardiovascular Rate/Rhythm: regular rate and regular rhythm Psychiatric Orientation: alert Testing Laboratory Results 06/04/21 13:06
--- NOTE | 2021-06-04 14:17 | History & Physical Report ---
Date of Service June 04, 2021 Assessment & Plan (1) Supervision of normal intrauterine in multigravida: Plan: Pt is clinically stable, having regular contractions -admit to L&D, AROM -NPO except sips and chips -IVs (epidural, LR) -FHTs (category 1) -labs ordered and reviewed -expectant management, anticipate (2) Normal labor and delivery: (3) Uterine contractions at greater than 20 weeks of gestation: (4) Proteinuria affecting : Admission and Anticipated Discharge Date Admission Date: June 04, 2021 History of Present Illness Primary Care Provider: MG Flores Veronica Finn is a 36 y/o female currently at 39.3 WGA with an ARASELI 06/08/21 as determined by LMP who is here for loss of mucus plug and increasingly frequent contractions (every 7 mins this AM). + contractions; + movement; no fluid loss; + bloody show Had regular appointments with OB. Labs: today Blood type: O positive Antibody screen: negative H.7 Hct: 34.7 WBC: 7.35 Plt: 208 Rubella: immune VDRL/RPR: nonreactive Gonorrhea: negative Chlamydia: negative HIV: negative HbSAg: negative GBS: negative Other screens: cff-DNA: negative CF: declined SMA: declined Allergies Allergy/AdvReac Type Severity Reaction Status Date / Time sertraline Allergy Unknown . Verified 06/01/21 10:07 Home Medications Medication Instructions Recorded Confirmed Type escitalopram oxalate 10 mg tablet 10 mg PO tab 08/20/19 06/01/21 History prenat.vits,shandra,[id number] 1 tab PO DAILY 10/27/20 06/04/21 History docusate sodium 100 mg capsule 100 mg PO DAILY 06/04/21 06/04/21 History (Colace) famotidine 20 mg tablet (Pepcid AC) 20 mg PO DAILY 06/04/21 06/04/21 History ferrous sulfate 325 mg (65 mg 325 mg PO DAILY 06/04/21 06/04/21 History iron) tablet (Iron (ferrous sulfate)) levothyroxine 137 mcg tablet 137 mcg PO DAILY 06/04/21 06/04/21 History (Synthroid) Patient History Medical History (Updated 06/04/21 @ 14:03 by Rafal Moscoso MD) Asymptomatic proteinuria Hx of malignant neoplasm of thyroid No chronic diseases present Surgical History H/O total thyroidectomy No significant past surgical history Family History Other Diabetes Heart disease Hypertension Osteoporosis Social History (Updated 10/27/20 @ 10:09 by Judith Walters) Smoking Status: Never smoker Second Hand Exposure: No; Do You Dip or Chew Tobacco: No; Tobacco Cessation Education Requested by Patient: No Hx Alcohol Use: No Hx Substance Use: No Preferred Language: Icelandic Communication Ability: Effective School Lunch Monitor Required: No Beliefs That Will Affect Care: None marital status: marital status details: Mati (34) [phone] Current Living Situation: Spouse Current Living Situation Comment: lives with spouse and daughter, 2 dogs. current occupational status: unemployed Other Information That Helps Us Care for You: No Feels Safe at Home: Yes Safety Concerns: Feels Safe At This Time Assistive Devices: None Review of Systems All systems reviewed & are unremarkable except as noted in HPI & below Physical Exam Physical Exam: General: Alert, oriented. No acute distress. Cardiac: Regular rate and rhythm, no murmurs/rubs/gallops. Respiratory: Clear to auscultation bilaterally a/p, no wheezes/rales/rhonchi. No increased work of breathing. Symmetrical chest rise. No respiratory distress. Pelvic: Dilation 3cm; Effacement 90; Station -[address] Alegria Lower Extremities: No lower extremity edema or swelling. No deep calf pain. Madhuri's negative bilaterally Baseline: 120 Variability: moderate Accelerations: present Decelerations: none Genitourinary: Manual OB Exam: + cervical dilation 3 cm, + cervical effacement 90% and + station -2 perKlaudia Alegria Results & Data ([facility]) Vital Signs (Past 12 Hours) Vital Signs Temp Pulse Resp BP Pulse Ox 06/04/21 14:10 92 H 115/65 06/04/21 14:08 76 114/60 06/04/21 14:07 81 100 06/04/21 14:06 81 108/61 06/04/21 14:04 77 113/63 06/04/21 14:02 77 110/57 L 100 06/04/21 14:00 82 115/62 06/04/21 13:58 88 116/65 06/04/21 13:57 80 100 06/04/21 13:56 86 130/60 06/04/21 13:55 83 137/59 L 06/04/21 13:53 80 120/72 06/04/21 13:52 83 129/83 99 06/04/21 13:47 90 100 06/04/21 13:42 88 99 06/04/21 13:37 91 H 100 06/04/21 13:32 97 H 100 06/04/21 13:17 78 136/75 06/04/21 11:26 36.7 C 75 20 121/74 06/04/21 11:10 75 121/74 Resident Activity Tracking Resident Involvement: Resident Care Provided Care Provided: OB Delivery
--- NOTE | 2021-06-04 18:02 | Labor Progress Brief Note ---
Date of Service June 04, 2021 Subjective Patient pushed for total of two hours. I assessed her multiple times during pushing, but also had to leave her to assess and deliver other patients. After two hours she stopped pushing per RN. She was "laboring down" due to maternal fatigue and frustration at the time when I re-entered her room. I asked her to set back up and push with me a few times so I could assess her progress and discuss options. FHT Cat 1 Station +1 at rest, +2 with efforts Position LOP with some asynclitism Fluid remains clear Proven pelvis, patient making good effort and status reassuring. Plenty of room seems evident on exam, if position were more favorable I think delivery would be rapid. First baby was born in <1 hour second stage. Encouraged labor down with patient in lateral position facing opposite the side she has rested most of today to try encouraging reposition. Will resume pushing with MD assist after 30 min or so. Assessment & Plan Admission and Anticipated Discharge Date Admission Date: June 04, 2021 Results & Data ([facility]) Vital Signs (Past 12 Hours) Vital Signs Temp Pulse Resp BP Pulse Ox 06/04/21 17:52 91 H 100 06/04/21 17:47 110 H 100 06/04/21 17:42 137 H 99 06/04/21 17:37 116 H 99 06/04/21 17:32 123 H 100 06/04/21 17:31 112 H 110/73 06/04/21 17:27 127 H 99 06/04/21 17:22 111 H 100 06/04/21 17:17 99 H 99 06/04/21 17:15 120 H 117/65 06/04/21 17:12 136 H 98 06/04/21 17:07 105 H 100 06/04/21 17:02 99 H 100 06/04/21 17:01 116 H 92 06/04/21 17:00 76 118/58 L 06/04/21 16:57 83 100 06/04/21 16:52 79 100 06/04/21 16:47 82 119/57 L 99 06/04/21 16:42 99 H 100 06/04/21 16:37 116 H 98 06/04/21 16:32 99 H 99 06/04/21 16:30 83 115/60 06/04/21 16:27 93 H 100 06/04/21 16:26 113 H 94 06/04/21 16:22 83 100 06/04/21 16:21 100 H 86 L 06/04/21 16:17 87 100 06/04/21 16:16 94 H 125/64 06/04/21 16:12 111 H 99 06/04/21 16:07 76 100 06/04/21 16:02 90 100 06/04/21 16:01 92 H 126/64 06/04/21 15:57 90 100 06/04/21 15:52 107 H 99 06/04/21 15:47 101 H 100 06/04/21 15:45 97 H 116/65 06/04/21 15:42 108 H 100 06/04/21 15:37 120 H 100 06/04/21 15:32 98 H 99 06/04/21 15:31 86 128/71 06/04/21 15:27 79 100 06/04/21 15:22 93 H 99 06/04/21 15:17 80 99 06/04/21 15:15 84 114/64 06/04/21 15:12 89 100 06/04/21 15:07 80 100 06/04/21 15:02 72 100 06/04/21 15:01 73 106/59 L 06/04/21 14:57 86 99 06/04/21 14:52 79 100 06/04/21 14:47 78 100 06/04/21 14:45 75 114/61 06/04/21 14:42 76 99 06/04/21 14:37 77 98 06/04/21 14:32 75 98 06/04/21 14:30 81 111/60 06/04/21 14:27 82 99 06/04/21 14:25 86 116/68 06/04/21 14:22 71 99 06/04/21 14:20 75 108/62 06/04/21 14:17 79 98 06/04/21 14:14 88 107/56 L 06/04/21 14:12 78 104/55 L 99 06/04/21 14:10 92 H 115/65 06/04/21 14:08 76 114/60 06/04/21 14:07 81 100 06/04/21 14:06 81 108/61 06/04/21 14:04 77 113/63 06/04/21 14:02 77 110/57 L 100 06/04/21 14:00 82 115/62 06/04/21 13:58 88 116/65 06/04/21 13:57 80 100 06/04/21 13:56 86 130/60 06/04/21 13:55 83 137/59 L 06/04/21 13:53 80 120/72 06/04/21 13:52 83 129/83 99 06/04/21 13:47 90 100 06/04/21 13:42 88 99 06/04/21 13:37 91 H 100 06/04/21 13:32 97 H 100 06/04/21 13:17 78 136/75 06/04/21 11:26 98.1 F 75 20 121/74 06/04/21 11:10 75 121/74 Coding Level of Care Code None
[2021-06-04] MEDS ORDERED: miSOPROStoL 200 MCG TAB ONE (19:41)
--- NOTE | 2021-06-04 19:45 | Delivery Summary ---
Vaginal Delivery Summary Date of Service June 04, 2021 Vaginal Delivery Summary DIAGNOSES: 1. Church intrauterine at 39w3d gestation. 2. Spontaneous onset of labor. 3. Group B Streptococcus Neg. PROCEDURE: Spontaneous vaginal delivery without laceration. SURGEON: Lucy Alegria MD. GLOBE TESTER: None. ESTIMATED BLOOD LOSS: 300 mL. COMPLICATIONS: None. PLACENTA: Spontaneous and intact with a 3-vessel cord. DISPOSITION: Stable to labor and delivery. DESCRIPTION: The patient pushed well and brought the head to in OA position. The 's head was allowed to deliver with contraction force and no further active pushing, with the perineum protected during this time. There was no nuchal cord. The left shoulder was anterior. The shoulders and body delivered without any difficulty, and the infant was placed on the maternal abdomen. It was vigorous and moving all extremities, and making respiratory efforts. The cord was doubly clamped by the MD and then cut by the FOB. The placenta delivered spontaneously and was noted to be intact and with a 3VC. The cervix, vagina and perineum were examined and were found to be without defect requiring repair. The fundus was firm and lochia minimal immediately after delivery. [facility] Vaginal Delivery Charge Vaginal Delivery Codes: 02337 global code for the antepartum, delivery, and post- Delivery Type Details:
--- NOTE | 2021-06-04 20:46 | Anesthesia Procedure Note ---
Date of Service June 04, 2021 Anesthesia Post Epidural Note Vital Signs Vital Signs: Temp Pulse Resp BP Pulse Ox 37.1 C 89 16 120/67 100 06/04/21 19:02 06/04/21 20:42 06/04/21 20:27 06/04/21 20:42 06/04/21 19:32 Pain Intensity Lower Abdomen: Pain Intensity: 0 Notes Mental Status: alert / awake / arousable Nausea / Vomiting: adequately controlled Pain: adequately controlled Airway Patency, RR, SpO2: stable & adequate BP & HR: stable & adequate Hydration State: stable & adequate Neuraxial Anesthesia: was administered and sensory block is resolving Anesthetic Complications: no major complications apparent and Pt Satisfied with anesthetic care Epidural: Removed without complications and With tip intact
[2021-06-04] MEDS ORDERED: DIPHTHERIA/TETANUS/PERTUSSIS 0.5 ML SYR/VIAL IM ONE (20:54)
[2021-06-04] MEDS ORDERED: ACETAMINOPHEN 325 MG TAB PO PRN (20:54)
[2021-06-04] MEDS ORDERED: HYDROCORTISONE ACETATE 25 MG SUPP PR PRN (20:54)
[2021-06-04] MEDS ORDERED: BENZOCAINE 20% AER SPR 82.5 GM CAN EXT PRN (20:54)
[2021-06-04] MEDS ORDERED: oxyCODONE/ACETAMINOPHEN 5mg/325mg TAB PO PRN (20:54)
[2021-06-04] MEDS ORDERED: SUPERCREAM 0.870% 15 GM JAR EXT PRN (20:54)
[2021-06-04] MEDS: DOCUSATE SODIUM 100 MG CAP PO SCH (22:10)
[2021-06-04] MEDS: IBUPROFEN 600 MG TAB PO PRN (23:08)
--- NOTE | 2021-06-05 06:17 | Obstetrical Progress Note ---
Date of Service <Antonino Caballero MD - Last Filed: 06/05/21 08:18> June 05, 2021 Assessment & Plan <Antonino Caballero MD - Last Filed: 06/05/21 08:18> (1) Encounter for care and examination after delivery: Stable, routine care -encourage ambulation -regular diet - -Rh+, RI, GBS- -d/c discussed with patient, who is amenable to PM d/c today (2) Normal labor and delivery: (3) Supervision of normal intrauterine in multigravida: <Lucy Alegria MD - Last Filed: 06/05/21 08:15> (1) Encounter for care and examination after delivery: (2) Normal labor and delivery: (3) Supervision of normal intrauterine in multigravida: Subjective <Antonino Caballero MD - Last Filed: 06/05/21 08:18> 36 y/o female who is now PPD #1 following spontaneous vaginal delivery. Reports feeling well overall this morning. + abdominal cramping & 3/10 pain well managed on analgesics. Voiding +. Tolerating meals well and able to ambulate. + passing gas but denies bowel movements. Some persistent lochia with some improvement this morning. . Review of Systems Denies fever, chills, sweats Denies shortness of breath, difficulty breathing, chest pain, palpitations, chest pressure. Denies breast pain. Denies dysuria. Denies headache or changes in vision Review of Systems All systems reviewed & are unremarkable except as noted in HPI & below Physical Exam <Antonino Caballero MD - Last Filed: 06/05/21 08:18> General: Alert, oriented. No acute distress. Cardiac: Regular rate and rhythm, no murmurs/rubs/gallops. Respiratory: Clear to auscultation bilaterally a/p, no wheezes/rales/rhonchi. No increased work of breathing. Symmetrical chest rise. No respiratory distress. Abdomen: Soft, nontender, nondistended. Bowel sounds present. Uterus: Uterine fundus firm, palpable 2 cm below umbilicus. Lower Extremities: No lower extremity edema or swelling. No deep calf pain. Madhuri's negative bilaterally.. Results & Data ([facility]) <Antonino Cablalero MD - Last Filed: 06/05/21 08:18> Vital Signs (Past 12 Hours) Vital Signs Temp Pulse Pulse Resp BP BP Pulse Ox 06/05/21 04:40 36.7 C 84 18 120/80 98 06/04/21 23:10 37.1 C 89 18 132/72 98 06/04/21 21:27 96 H 18 108/58 L 06/04/21 21:12 90 114/65 06/04/21 20:57 88 18 114/68 06/04/21 20:42 89 120/67 06/04/21 20:27 86 16 119/63 06/04/21 20:12 84 18 113/65 06/04/21 19:57 91 H 18 113/66 06/04/21 19:42 88 16 116/68 06/04/21 19:32 103 H 100 06/04/21 19:27 105 H 16 118/67 100 06/04/21 19:23 160 H 89 L 06/04/21 19:22 149 H 97 06/04/21 19:17 141 H 100 06/04/21 19:16 141 H 91 06/04/21 19:12 123 H 100 06/04/21 19:07 106 H 100 06/04/21 19:02 37.1 C 126 H 18 95 06/04/21 19:00 99 H 118/70 06/04/21 18:57 107 H 100 06/04/21 18:52 84 100 06/04/21 18:47 84 100 06/04/21 18:45 88 18 109/67 06/04/21 18:42 92 H 99 06/04/21 18:37 87 100 06/04/21 18:32 87 99 06/04/21 18:31 96 H 113/69 06/04/21 18:30 37.1 C 06/04/21 18:27 88 100 06/04/21 18:22 85 99 06/04/21 18:17 86 100 06/04/21 18:15 96 H 114/69 <Lucy Alegria MD - Last Filed: 06/05/21 08:15> Co-Signing Physician Notes Resident Physician Supervision Note: I interviewed and examined the patient. Discussed with Dr. Caballero and agree with findings and plan as documented in the note. Any exceptions or clarifications are listed here: [ ] Documented By: Lucy Alegria MD, FACOG <Lucy Alegria MD - Last Filed: 06/05/21 08:15> Resident Involvement: Resident Care Provided Care Provided: Adult Hospital Medicine
[2021-06-05] MEDS ORDERED: LEVOTHYROXINE SODIUM 137 MCG TABLET PO SCH (06:30)
[2021-06-05 06:52] LABS: Hematocrit (blood only) 31.2 % (37-47); Hemoglobin 10.5 g/dL (12.0-16.0); Mean Corpuscular Hgb Conc 33.7 g/dL (32-36); Mean Corpuscular Volume 95.1 fL (80-100); Mean Platelet Volume 9.7 fL (7.4-10.4); Platelet Count 190 K/uL (130-400); RDW Coefficient of Variation 13.7 % (11.5-14.5); RDW Standard Deviation 47.6 fL (36.4-46.3); Red Blood Count 3.28 M/uL (4.2-5.4); White Blood Count 10.31 K/uL (4.8-10.8)
[2021-06-05] MEDS ORDERED: PRENATAL VITAMIN 1 TAB PO SCH (08:00)
[2021-06-05] MEDS: DOCUSATE SODIUM 100 MG CAP PO SCH (08:23)
[2021-06-05] MEDS: IBUPROFEN 600 MG TAB PO PRN ×2 (08:23→17:57)
[2021-06-05] MEDS ORDERED: ESCITALOPRAM OXALATE 10 MG TAB PO SCH (09:00)
[2021-06-07] MEDS ORDERED: LEVOTHYROXINE SODIUM 137 MCG TABLET PO SCH (06:30)
== END 2021-06-05 21:00 | disposition home or self-care (01) | DRG 807 ==
LOC: OPB 10:48 → 4S1 10:50 → 4S2 21:45